=== PATIENT | female | born 1975 | race African-American/Black ===

== ENCOUNTER 2017-11-30 21:20 | Emergency (ER) | payer BC ==
[~2017-11-30] VITALS: Ht 149.9 cm; Wt 80.7 kg
--- NOTE | ~2017-11-30 | EKG ---
[place] [address] [facility] [employer] [place] [address] ELECTROCARDIOGRAM REPORT Name: MELVIN ALVARADO Room #: DEP [facility] CENTEROnelia#: [id number] Admission: 11/30/17 Attend Phys: Discharge: 11/30/17 Date of : 71 Report #: [id number] THIS REPORT FOR: //name// 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1975 Requested By: Grupo Torres Order Number: [id number] MD: Sal Juarez Measurements Intervals [place] Rate: 91 P: 17 AR: 174 QRS: 34 QRSD: 69 T: 29 QT: 347 QTc: 427 Interpretive Statements Sinus rhythm ST elev, probable normal early repol pattern Compared to ECG 11/26/2013 09:39:53 No significant change was found Electronically Signed On 12-01-2017 7:47:59 CDT by Sal Juarez [email or web address] <ELECTRONICALLY SIGNED> By: Sal Juarez MD, [facility] 12/01/17 0747 34 34 Sal Juarez MD, [facility] /EPI
[~2017-11-30 21:20] MED LIST: BIRTH CONTROL; FLONASE 0.05%50 MCG INH; IBUPROFEN 600600 M1 PO; NAPROSYN250 MG; NORCO 5-325 TA1 EACH; PRILOSEC 20 MG20 MG PO; PROTONIX40 MG PO; TOPAMAX 100 MG100 MG PO; TOPIRAMATE50 MG PO; TYLENOL325 MG PO; VITAMIN D 5050000 I1 PO; VITAMIN D1000 UNI1 PO
[2017-11-30 21:51] LABS: ABSOLUTE NEUTROPHILS 2.4 thou/uL (1.4-8.2); BASOPHILS 2.2 % (0.0-2.0); EOSINOPHILS 1.1 % (0.0-3.0); HEMATOCRIT 42.1 % (37.0-47.0); HEMOGLOBIN 14.2 gm/dL (12.0-15.0); LYMPHOCYTES 57.1 % (24.0-44.0); MCH 27.1 pg (26.0-34.0); MCHC 33.8 g/dL (28.0-37.0); MCV 80.2 fL (80.0-100.0); MONOCYTES 9.4 % (1.0-8.0); PLATELET COUNT 334 thou/uL (150-400); POLYS 30.2 % (36.0-66.0); RBC 5.25 mil/uL (4.20-5.00); RDW 15.6 % (10.5-14.5); WBC 7.9 thou/uL (4.0-11.0)
[2017-11-30 21:59] LABS: ANION GAP 12 mmol/L (7-16); BUN 18 mg/dL (7-18); CALCIUM 9.1 mg/dL (8.5-10.1); CHLORIDE 101 mmol/L (98-107); CO2 23 mmol/L (21-32); CREATININE 1.3 mg/dL (0.6-1.0); GLUCOSE 89 mg/dL (74-106); POTASSIUM 3.9 mmol/L (3.5-5.1); SODIUM 136 mmol/L (136-145)
[2017-11-30 22:08] LABS: TROPONIN-I <0.06 ng/mL (<0.06)
[2017-11-30] MEDS ORDERED: ALDACTONE100 MG PO (22:16)
[2017-11-30] MEDS ORDERED: DORYX50 MG PO (22:16)
[2017-11-30] MEDS ORDERED: NAPROSYN500 MG PO (22:50)
[2017-11-30 23:11] VITALS: BP 110/87
== END 2017-11-30 23:15 | disposition home or self-care (01) ==
LOC: ER 21:20
PROVIDERS: Emergency Medicine
DX: R07.89 Other chest pain (principal)

== ENCOUNTER 2018-02-28 15:26 | Emergency (ER) | payer BC ==
[~2018-02-28] VITALS: Ht 149.9 cm; Wt 79.4 kg
[~2018-02-28 15:26] MED LIST changes: +ALDACTONE100 MG PO; +DORYX50 MG PO; +NAPROSYN500 MG PO
[2018-02-28 16:49] LABS: ABSOLUTE NEUTROPHILS 3.2 thou/uL (1.4-8.2); BASOPHILS 1.3 % (0.0-2.0); EOSINOPHILS 1.2 % (0.0-3.0); HEMATOCRIT 44.2 % (37.0-47.0); HEMOGLOBIN 15.1 gm/dL (12.0-15.0); LYMPHOCYTES 49.7 % (24.0-44.0); MCHC 34.1 g/dL (28.0-37.0); MCV 81.9 fL (80.0-100.0); MONOCYTES 8.2 % (1.0-8.0); PLATELET COUNT 321 thou/uL (150-400); POLYS 39.6 % (36.0-66.0); RBC 5.39 mil/uL (4.20-5.00); RDW 15.2 % (10.5-14.5)
[2018-02-28 16:58] LABS: CALCIUM 9.9 mg/dL (8.5-10.1); CREATININE 1.4 mg/dL (0.6-1.0); POTASSIUM 3.9 mmol/L (3.5-5.1)
[2018-02-28 17:00] LABS: APTT 30.1 Seconds (24.5-32.8); PROTIME 10.6 Seconds (9.3-11.4)
[2018-02-28 17:03] LABS: ALBUMIN 3.9 g/dL (3.4-5.0); TOTAL BILIRUBIN 0.3 mg/dL (<0.1-1.0); TOTAL PROTEIN 8.3 g/dL (6.4-8.2)
[2018-02-28] MEDS ORDERED: PROVERA10 MG PO (17:20)
[2018-02-28] MEDS ORDERED: NAPROSYN500 MG PO (17:20)
[2018-02-28 17:51] VITALS: BP 108/73
== END 2018-02-28 17:53 | disposition home or self-care (01) ==
LOC: ER 15:26
PROVIDERS: Emergency Medicine
DX: N94.6 Dysmenorrhea, unspecified (principal); R42 Dizziness and giddiness; K64.9 Unspecified hemorrhoids

== ENCOUNTER 2018-09-21 07:22 | Emergency (ER) | payer BC ==
[~2018-09-21] VITALS: Ht 149.9 cm; Wt 81.7 kg
[~2018-09-21 07:22] MED LIST changes: +PROVERA10 MG PO
[2018-09-21 08:19] LABS: ABSOLUTE NEUTROPHILS 2.1 thou/uL (1.4-8.2); BASOPHILS 1.5 % (0.0-2.0); EOSINOPHILS 1.6 % (0.0-3.0); HEMOGLOBIN 14.9 gm/dL (12.0-15.0); LYMPHOCYTES 44.1 % (24.0-44.0); MCH 26.4 pg (26.0-34.0); MCHC 33.2 g/dL (28.0-37.0); MCV 79.5 fL (80.0-100.0); MONOCYTES 8.7 % (1.0-8.0); PLATELET COUNT 311 thou/uL (150-400); POLYS 44.1 % (36.0-66.0); RBC 5.66 mil/uL (4.20-5.00); RDW 16.3 % (10.5-14.5); WBC 4.7 thou/uL (4.0-11.0)
[2018-09-21 08:27] LABS: ANION GAP 9 mmol/L (7-16); BUN 9 mg/dL (7-18); CALCIUM 9.7 mg/dL (8.5-10.1); CHLORIDE 104 mmol/L (98-107); CO2 25 mmol/L (21-32); CREATININE 1.1 mg/dL (0.6-1.0); GLUCOSE 107 mg/dL (74-106); POTASSIUM 3.9 mmol/L (3.5-5.1); SODIUM 138 mmol/L (136-145)
[2018-09-21 08:36] LABS: TROPONIN-I <0.06 ng/mL (<0.06)
[2018-09-21] MEDS ORDERED: PROTONIX40 MG PO (08:44)
--- NOTE | 2018-09-21 08:50 | EKG ---
[place] [address] [facility] [place] [address] ELECTROCARDIOGRAM REPORT Name: MELVIN ALVARADO CAILIN Room #: [facility]ITALLavinia[facility] [id number] ������������������ Admission: 09/21/18 ������������������ Attend Phys: Discharge: ������������������ Date of : 71 Report #: [id number] ����������������������������������������������������������������� [id number] THIS REPORT FOR: //name// 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1975 Requested By: Grupo Torres Order Number: [id number] MD: Sal Juarez Measurements Intervals [place] Rate: 75 P: -2 AR: 163 QRS: 49 QRSD: 71 T: 37 QT: 367 QTc: 410 Interpretive Statements Sinus rhythm Early repolarization Compared to ECG 11/30/2017 21:35:07 No significant change was found Electronically Signed On 09-21-2018 8:49:46 CDT by Sal Juarez [email or web address] ��������������������������������������������� <ELECTRONICALLY SIGNED> ���������������������������������������� By: Sal Juarez MD, [facility] ��������������������������������������������� 09/21/18 0849 0726 5 Sal Juarez MD, FACC /EPI
[2018-09-21 08:51] VITALS: BP 146/131
== END 2018-09-21 08:45 | disposition home or self-care (01) ==
LOC: ER 07:22
PROVIDERS: Emergency Medicine
DX: R07.89 Other chest pain (principal); Z91.041 Radiographic dye allergy status